=== PATIENT | female | born 1990 | race Two or more races ===

== ENCOUNTER 2024-01-01 23:09 | Emergency (ER) | payer OTHER ==
[~2024-01-01] VITALS: Ht 167.6 cm; Wt 63.5 kg
[2024-01-02] MEDS ORDERED: ALBU8.5H8 INH (00:08)
[2024-01-02] MEDS ORDERED: PROM118S5 PO (00:08)
[2024-01-02] MEDS ORDERED: PRED50TA PO (00:08)
[2024-01-02] MEDS ORDERED: SULF1TAB48 PO (00:53)
[2024-01-02] MEDS: predniSONE 50 MG TABLET PO ONE (01:00)
[2024-01-02] MEDS: SULFAMETH/TRIMETH 800/160 MG TABLET PO ONE (01:00)
[2024-01-02] MEDS ORDERED: predniSONE 50 MG TABLET ONE (01:02)
[2024-01-02] MEDS ORDERED: SULFAMETH/TRIMETH 800/160 MG TABLET ONE (01:02)
[2024-01-02 01:10] VITALS: BP 110/84; TEMP 98.1; O2SAT 99
== END 2024-01-02 01:11 | disposition home or self-care (01) ==
LOC: ER 23:10
DX: J45.909 Unspecified asthma, uncomplicated (principal); B95.8 Unspecified staphylococcus as the cause of diseases classified elsewhere; R07.89 Other chest pain; Z79.899 Other long term (current) drug therapy
CPT/HCPCS: 99283; 71045; J7512; A4606; A4663